=== PATIENT | female | born 1990 | race Caucasian/White ===

== ENCOUNTER 2024-09-06 13:50 | Outpatient (CLI) | payer BC ==
[2024-09-06 14:54] LABS: Hematocrit 39.1 % (34.9-44.5); Hemoglobin 13.1 g/dL (12.0-15.5); Mean Corpuscular HGB CONC 33.5 g/dL (32.0-36.0); Mean Corpuscular Hemoglobin 29.2 pg (27.0-33.0); Mean Corpuscular Volume 87.3 fL (81.6-98.3); Mean Platelet Volume 10.7 fL (7.4-10.4); Platelet Count 209 10x3/uL (150-450); RBC Distribution Width 12.2 % (11.5-14.5); Red Blood Cell (RBC) Count 4.48 10x6/uL (3.90-5.03); White Blood Cell (WBC) Count 6.9 10x3/uL (3.5-10.5)
== END 2024-09-06 13:51 | disposition home or self-care (01) ==
LOC: CSHLAB 13:50
PROVIDERS: ATTEND Student in an Organized Health Care Education/Training Program
DX: Z01.812 Encounter for preprocedural laboratory examination (principal); O02.1 Missed abortion
CPT/HCPCS: 85027; 86850; 86900; 86901

== ENCOUNTER 2024-09-07 06:02 | Day surgery (SDC) | payer BC ==
[2024-09-06 14:42] VITALS: BMI 23.3
[2024-09-07] MEDS ORDERED: CeleCOXIB 100 MG CAP ONE (06:30)
[2024-09-07] MEDS ORDERED: Misoprostol 200 MCG TAB ONE (06:54)
[2024-09-07] MEDS ORDERED: Methylergonovine 0.2 MG/ML VIAL ONE (06:54)
[2024-09-07] MEDS ORDERED: Tranexamic Acid 1,000 MG/10 ML VIAL ONE (06:54)
[2024-09-07] MEDS ORDERED: Midazolam HCl 2 mg/2 ml Vial ONE (07:10)
[2024-09-07] MEDS ORDERED: CEFAZOLIN 2 GM VIAL ONE (07:13)
[2024-09-07] MEDS ORDERED: Lidocaine 1% PF 5 ML VIAL ONE (07:22)
[2024-09-07] MEDS ORDERED: Dexamethasone 20 MG/5 ML VIAL ONE (07:22)
[2024-09-07] MEDS ORDERED: fentaNYL 50 mcg/mL 1 mL Vial ONE (07:22)
[2024-09-07] MEDS ORDERED: PROPOFOL 20 ML ONE (07:22)
[2024-09-07] MEDS ORDERED: Ondansetron PF 4 MG/2 ML Vial ONE (07:22)
[2024-09-07] MEDS ORDERED: Meperidine HCl/PF 25 MG (1 mL) VIAL ONE (08:32)
== END 2024-09-07 09:20 | disposition home or self-care (01) ==
LOC: CSHSDC 06:02
PROVIDERS: ATTEND Student in an Organized Health Care Education/Training Program
PROC: 10D17ZZ Extraction of Products of Conception, Retained, Via Natural or Artificial Opening (ICD-10-PCS; principal; 2024-09-07)
DX: O02.1 Missed abortion (principal); O99.341 Other mental disorders complicating pregnancy, first trimester; F32.A Depression, unspecified; Z87.59 Personal history of other complications of pregnancy, childbirth and the puerperium; Z3A.09 9 weeks gestation of pregnancy; Z88.5 Allergy status to narcotic agent; Z79.899 Other long term (current) drug therapy
CPT/HCPCS: 88305; J1100; J2175; J2210; J2250; J2405; J2704; J3010